=== PATIENT | female | born 1950 | race Caucasian/White ===

== ENCOUNTER 2017-12-02 14:50 | Inpatient (IN) | payer OTHER ==
[~2017-12-02] VITALS: Ht 167.6 cm; Wt 86.9 kg
[2017-12-02] MEDS ORDERED: SODIUM CHLORIDE 0.9% 1,000 ML IVB ONE (15:20)
[2017-12-02] MEDS ORDERED: DILTIAZEM HCL 25 MG/5 ML VIAL IV ONE (15:30)
[2017-12-02] MEDS ORDERED: DILTIAZEM HCL 50 MG/10 ML VIAL IV ONE (16:00)
[2017-12-02 16:07] LABS: Urine Bacteria NONE SEEN /hpf (None Seen); Urine Blood Negative /uL (Negative); Urine Specific Gravity 1.003 (1.001-1.035); Urine WBC 2 /hpf (0 - 5)
[2017-12-02 16:12] LABS: Basophils # (auto) 0.1 uL; Basophils % (auto) 1.1 % (0.0-2.0); Eosinophils # (auto) 0.4 uL; Eosinophils % (auto) 5.5 % (0.0-7.0); Hemoglobin 13.2 g/dL (12.2-16.2); Lymphocytes # (auto) 1.3 uL; Lymphocytes % (auto) 19.9 % (10.0-50.0); Mean Corpuscular Hemoglobin 28.1 pg (28.0-32.0); Mean Corpuscular Hgb Conc. 33.1 g/dL (32.0-36.0); Monocytes # (auto) 0.7 uL; Monocytes % (auto) 10.8 % (0.0-12.0); Neutrophils # (auto) 4.1 uL; Neutrophils % (auto) 62.7 % (37.0-80.0); Nucleated Red Blood Cells % 0.1 %; Platelet Count (auto) 412 10^3/uL (140-450); White Blood Cell 6.6 10^3/uL (4.4-10.8)
[2017-12-02 16:13] LABS: INR 0.9 (0.9-1.15); Partial Thromboplastin Time 24.2 sec (23.78-33.04); Prothrombin Time 9.7 sec (9.27-12.13)
[2017-12-02] MEDS ORDERED: PROMETHAZINE HCL 25 MG/ML 1ML IV PRN (16:15)
[2017-12-02] MEDS ORDERED: ACETAMINOPHEN 500 MG TAB PO PRN (16:15)
[2017-12-02] MEDS ORDERED: NITROGLYCERIN 0.4 MG SL TAB SL PRN (16:15)
[2017-12-02] MEDS ORDERED: LABETALOL HCL 5 MG/ML ML 20ML VIAL IV ONE (16:15)
[2017-12-02] MEDS ORDERED: LORazepam 0.5 MG TAB PO PRN (16:15)
[2017-12-02] MEDS ORDERED: TEMAZEPAM 15 MG CAP PO PRN (16:15)
[2017-12-02] MEDS ORDERED: LACTULOSE 20Gm/30ML SOLN PO PRN (16:15)
[2017-12-02] MEDS ORDERED: MORPHINE SULF INJ 2 MG/ML SYRINGE 1ML IV PRN ×2 (16:15)
[2017-12-02] MEDS ORDERED: DILTIAZEM HCL 60 MG TAB PO ONE (16:15)
[2017-12-02] MEDS ORDERED: LABETALOL HCL 5 MG/ML ML 20ML VIAL IV PRN (16:15)
[2017-12-02] MEDS ORDERED: HYDROcodone-ACET 5/325MG TAB PO PRN (16:15)
[2017-12-02] MEDS ORDERED: DEXTROSE (50%) 50ML SYRG IV PRN (16:15)
[2017-12-02 16:24] LABS: Alanine Aminotransferase 26 U/L (13-56); Albumin 3.5 g/dL (3.4-5.0); Alkaline Phosphatase 90 U/L (45-117); Anion Gap 7 (5-15); Aspartate Aminotransferase 16 U/L (15-37); BUN/Creatinine Ratio 12.6; Bilirubin, Total 0.3 mg/dL (0.2-1.0); Blood Urea Nitrogen 15 mg/dL (7-18); Calcium 8.8 mg/dL (8.5-10.1); Carbon Dioxide 23 mmol/L (21-32); Chloride 109 mmol/L (98-107); GFR African American 58 mL/min; GFR Non-African American 48 mL/min; Glucose 164 mg/dL (74-106); Magnesium 1.9 mg/dL (1.6-2.6); Sodium 139 mmol/L (136-145); Total Protein 7.2 g/dL (6.4-8.2)
[2017-12-02] MEDS ORDERED: ENOXAPARIN SOD 80 MG/0.8ML SYRINGE SC ONE (17:00)
[2017-12-02] MEDS ORDERED: POTASSIUM CHL 20 Meq TABLET PO ONE (17:15)
[2017-12-02] MEDS: ACCU-CHEK COMFORT CURVE STRIP VI SCH ×2 (17:49→23:15)
[2017-12-02] MEDS: InsuLIN REG 1unit/0.01ml Soln (100units/ml) SC SCH ×2 (17:49→23:19)
[2017-12-02 18:00] VITALS: BP 181/77
[2017-12-02] MEDS: LABETALOL HCL 5 MG/ML ML 20ML VIAL IV PRN ×2 (19:13→23:16)
[2017-12-02 22:00] VITALS: BP 169/71
[2017-12-02 22:54] LABS: Alcohol, Urine < 3.0 mg/dL (0-5); Amphetamine Screen, Urine NEGATIVE (NEGATIVE); Barbiturate Scree,Urine NEGATIVE (NEGATIVE); Benzodiazephine Screen, Urine NEGATIVE (NEGATIVE); Cannabinoid Screen, Urine NEGATIVE (NEGATIVE); Cocaine Screen, Urine NEGATIVE (NEGATIVE); Opiate Scree,Urine NEGATIVE (NEGATIVE); Phencyclidine Screen, Urine NEGATIVE (NEGATIVE)
[2017-12-02] MEDS: SODIUM CHLOR 0.9% PF (SALINE LOCK) 10ML VIAL/SYR IV SCH (23:14)
[2017-12-02] MEDS: CARVEDILOL 3.125 MG TAB PO SCH (23:15)
[2017-12-03] MEDS: DILTIAZEM HCL 60 MG TAB PO SCH ×3 (01:02→11:46)
[2017-12-03 04:47] VITALS: BP 166/70
[2017-12-03] MEDS ORDERED: LEFL1TAB3 PO (05:51)
[2017-12-03] MEDS ORDERED: CYCL1TAB18 PO (05:51)
[2017-12-03] MEDS ORDERED: ASPI-231 PO (05:51)
[2017-12-03] MEDS ORDERED: HYDR-4683 PO (05:51)
[2017-12-03] MEDS ORDERED: HYDR-4296 PO (05:51)
[2017-12-03] MEDS ORDERED: CARV25TA55 PO (05:51)
[2017-12-03] MEDS ORDERED: ATO40T PO (05:51)
[2017-12-03] MEDS ORDERED: GLIP-116 PO (05:51)
[2017-12-03] MEDS ORDERED: METF-372 PO (05:51)
[2017-12-03] MEDS ORDERED: CIME-52 PO (05:51)
[2017-12-03] MEDS ORDERED: AMLO2.5T6 PO (05:51)
[2017-12-03] MEDS ORDERED: TRIA50TA2 PO (05:51)
[2017-12-03 05:57] LABS: Basophils # (auto) 0.1 uL; Basophils % (auto) 1.1 % (0.0-2.0); Eosinophils # (auto) 0.3 uL; Hematocrit 34.4 % (36.0-46.0); Hemoglobin 11.7 g/dL (12.2-16.2); Lymphocytes # (auto) 1.4 uL; Lymphocytes % (auto) 28.5 % (10.0-50.0); Mean Corpuscular Hemoglobin 29.1 pg (28.0-32.0); Mean Corpuscular Hgb Conc. 33.9 g/dL (32.0-36.0); Mean Corpuscular Volume 85.9 fL (80.0-100.0); Monocytes # (auto) 0.6 uL; Monocytes % (auto) 11.2 % (0.0-12.0); Neutrophils # (auto) 2.6 uL; Neutrophils % (auto) 53.2 % (37.0-80.0); Nucleated Red Blood Cells % 0.1 %; Platelet Count (auto) 317 10^3/uL (140-450); Red Blood Cells 4.01 10^6/uL (4.0-5.20); Red Cell Distribution Width 13.9 % (11.8-14.3); White Blood Cell 4.9 10^3/uL (4.4-10.8)
[2017-12-03] MEDS: ACCU-CHEK COMFORT CURVE STRIP VI SCH ×2 (06:00→11:21)
[2017-12-03] MEDS: SODIUM CHLOR 0.9% PF (SALINE LOCK) 10ML VIAL/SYR IV SCH (06:14)
[2017-12-03] MEDS: InsuLIN REG 1unit/0.01ml Soln (100units/ml) SC SCH ×2 (06:16→11:46)
[2017-12-03 06:25] LABS: Alanine Aminotransferase 22 U/L (13-56); Albumin 2.9 g/dL (3.4-5.0); Alkaline Phosphatase 69 U/L (45-117); Anion Gap 5 (5-15); Aspartate Aminotransferase 15 U/L (15-37); BUN/Creatinine Ratio 16.3; Bilirubin, Total 0.3 mg/dL (0.2-1.0); Blood Urea Nitrogen 16 mg/dL (7-18); Calcium 8.6 mg/dL (8.5-10.1); Carbon Dioxide 24 mmol/L (21-32); Chloride 110 mmol/L (98-107); Cholesterol 142 mg/dL (< 200); GFR African American 73 mL/min; GFR Non-African American 60 mL/min; Glucose 120 mg/dL (74-106); HDL Cholesterol 35 mg/dL (40-59); Sodium 139 mmol/L (136-145); Total Protein 5.9 g/dL (6.4-8.2); Triglycerides 404 mg/dL (< 150)
[2017-12-03 09:23] VITALS: BP 139/74
[2017-12-03] MEDS ORDERED: FUROSEMIDE 40 MG/4 ML VIAL IV SCH (10:00)
[2017-12-03] MEDS ORDERED: ENOXAPARIN SOD 80 MG/0.8ML SYRINGE SC SCH (10:00)
[2017-12-03] MEDS ORDERED: PANTOPRAZOLE 40 MG TAB PO SCH (10:00)
[2017-12-03] MEDS ORDERED: ASPirin 81 mg TAB PO SCH (10:00)
[2017-12-03] MEDS ORDERED: POTASSIUM CHL 20 Meq TABLET PO SCH (10:00)
[2017-12-03] MEDS: CARVEDILOL 3.125 MG TAB PO SCH (10:05)
[2017-12-03 13:02] VITALS: BP 135/78
[2017-12-03 15:04] VITALS: BP 135/78
[2017-12-03 15:08] LABS: BUN/Creatinine Ratio 14.8; Calcium 8.8 mg/dL (8.5-10.1); Potassium 3.4 mmol/L (3.5-5.1)
[2017-12-03] MEDS ORDERED: CARVEDILOL 12.5 MG TAB PO SCH (22:00)
== END 2017-12-03 15:42 | disposition home or self-care (01) | DRG 305 ==
LOC: ER 14:50 → TELE 14:51 → TELE-WESTW 17:56
PROVIDERS: ADMIT Internal Medicine; ATTEND Internal Medicine
DX: I16.0 Hypertensive urgency (principal); I48.91 Unspecified atrial fibrillation; I50.9 Heart failure, unspecified; M79.7 Fibromyalgia; I11.0 Hypertensive heart disease with heart failure; E66.3 Overweight; E11.9 Type 2 diabetes mellitus without complications; D64.9 Anemia, unspecified; E78.5 Hyperlipidemia, unspecified; E86.1 Hypovolemia; E87.6 Hypokalemia; Z68.30 Body mass index [BMI] 30.0-30.9, adult; Z85.828 Personal history of other malignant neoplasm of skin
CPT/HCPCS: 36415; 71046; 80048; 80053; 80061; 80307; 81001; 82550; 82962; 83036; 83735; 83880; 84443; 84484; 85025; 85379; 85610; 85652; 85730; 86141; 93005; 93306; 94761; 96361; 96374; 99291; J1815

== ENCOUNTER 2017-12-05 12:43 | Emergency (ER) | payer OTHER ==
[~2017-12-05] VITALS: Ht 167.6 cm; Wt 80.7 kg
[~2017-12-05 12:43] MED LIST: AMLO2.5T6 PO; ASPI-231 PO; ATO40T PO; CARV25TA55 PO; CIME-52 PO; CYCL1TAB18 PO; GLIP-116 PO; HYDR-4296 PO; HYDR-4683 PO; LEFL1TAB3 PO; METF-372 PO; TRIA50TA2 PO
[2017-12-05] MEDS ORDERED: cloNIDine HCL 0.1 MG TAB ONE (12:55)
[2017-12-05] MEDS ORDERED: cloNIDine HCL 0.1 MG TAB PO ONE (13:00)
[2017-12-05] MEDS ORDERED: LORazepam 0.5 MG TAB PO ONE (13:15)
[2017-12-05 13:37] LABS: Basophils # (auto) 0.1 uL; Basophils % (auto) 1.1 % (0.0-2.0); Eosinophils # (auto) 0.3 uL; Eosinophils % (auto) 3.9 % (0.0-7.0); Hematocrit 42.2 % (36.0-46.0); Hemoglobin 14.4 g/dL (12.2-16.2); Lymphocytes # (auto) 1.3 uL; Lymphocytes % (auto) 19.7 % (10.0-50.0); Mean Corpuscular Hemoglobin 29.4 pg (28.0-32.0); Mean Corpuscular Hgb Conc. 34.1 g/dL (32.0-36.0); Mean Corpuscular Volume 86.1 fL (80.0-100.0); Monocytes # (auto) 0.5 uL; Monocytes % (auto) 7.6 % (0.0-12.0); Neutrophils # (auto) 4.4 uL; Neutrophils % (auto) 67.7 % (37.0-80.0); Nucleated Red Blood Cells % 0.1 %; Platelet Count (auto) 425 10^3/uL (140-450); Red Cell Distribution Width 14.2 % (11.8-14.3); White Blood Cell 6.5 10^3/uL (4.4-10.8)
[2017-12-05 14:00] LABS: Alanine Aminotransferase 29 U/L (13-56); Albumin 3.7 g/dL (3.4-5.0); Anion Gap 11 (5-15); Aspartate Aminotransferase 22 U/L (15-37); BUN/Creatinine Ratio 14.5; Blood Urea Nitrogen 20 mg/dL (7-18); Calcium 9.7 mg/dL (8.5-10.1); Carbon Dioxide 25 mmol/L (21-32); Chloride 99 mmol/L (98-107); GFR African American 49 mL/min; GFR Non-African American 40 mL/min; Glucose 278 mg/dL (74-106); Magnesium 1.8 mg/dL (1.6-2.6); Potassium 3.5 mmol/L (3.5-5.1); Sodium 135 mmol/L (136-145)
[2017-12-05 14:05] LABS: Alkaline Phosphatase 96 U/L (45-117); Bilirubin, Total 0.4 mg/dL (0.2-1.0); Total Protein 7.7 g/dL (6.4-8.2)
[2017-12-05 14:56] VITALS: BP 137/84
== END 2017-12-05 16:09 | disposition home or self-care (01) ==
LOC: ER 12:44
DX: I48.91 Unspecified atrial fibrillation (principal); I11.0 Hypertensive heart disease with heart failure; I50.9 Heart failure, unspecified; E78.5 Hyperlipidemia, unspecified; Z90.89 Acquired absence of other organs; Z79.899 Other long term (current) drug therapy
CPT/HCPCS: 36415; 80053; 83735; 84484; 85025; 93005; 94761

== ENCOUNTER 2024-10-17 18:43 | Emergency (ER) | payer OTHER ==
[~2024-10-17] VITALS: Ht 167.6 cm; Wt 77.1 kg
[~2024-10-17 18:43] MED LIST changes: +AMLO1TAB21 PO; -AMLO2.5T6 PO; -ASPI-231 PO; +ASPI1TAB20 PO; -ATO40T PO; +ATOR-507 PO; +CYCL-839 PO; -CYCL1TAB18 PO; -GLIP-116 PO; +GLIP10TA9 PO; -HYDR-4296 PO; -HYDR-4683 PO; +HYDR-4833 PO; +HYDR25TA88 PO; -TRIA50TA2 PO; +TRIA75TA11 PO
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
[2024-10-17] MEDS: ACETAMINOPHEN 325 MG TAB PO ONE (22:37)
[2024-10-17 22:45] VITALS: BP 204/101; TEMP 98.1
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
[2024-10-18 01:11] VITALS: PULSE 68; RESP 18; O2SAT 98
== END 2024-10-18 01:17 | disposition home or self-care (01) ==
LOC: ER 18:43 → EDBD 18:43 → ER 10-18 01:17
DX: S62.112A Displaced fracture of triquetrum [cuneiform] bone, left wrist, initial encounter for closed fracture (principal); I11.0 Hypertensive heart disease with heart failure; I50.9 Heart failure, unspecified; E11.9 Type 2 diabetes mellitus without complications; E78.5 Hyperlipidemia, unspecified; I48.91 Unspecified atrial fibrillation; M19.072 Primary osteoarthritis, left ankle and foot; Z98.51 Tubal ligation status; Z90.89 Acquired absence of other organs; Z79.84 Long term (current) use of oral hypoglycemic drugs; Z79.82 Long term (current) use of aspirin; Z79.01 Long term (current) use of anticoagulants; Z79.899 Other long term (current) drug therapy; V89.2XXA Person injured in unspecified motor-vehicle accident, traffic, initial encounter; Y93.89 Activity, other specified; Y92.488 Other paved roadways as the place of occurrence of the external cause; Y99.8 Other external cause status
CPT/HCPCS: 29125; 73110; 73130; 73610